=== PATIENT | female | born 1960 | race Caucasian/White ===

== ENCOUNTER → 2017-02-23 | Day surgery (SDC) | payer OTHER ==
[~2017-02-23] VITALS: Ht 165.1 cm; Wt 122.5 kg
[~2017-02-23] MED LIST: ACET-2605 PO; ACET325T51 PO; ASPI325T32 PO; ATOR20TA65 PO; CARV25TA2 PO; GLIP2.5T2 PO; Ketamine 10 mg/mL 20 mL Inj ONE; LISI-567 PO; Lactated Ringer's 1,000 ML IV ONE; Lactated Ringer's 1,000 ML IV SCH; METF500T4 PO; MetoCLOpramide 5 mg/mL 2 mL Inj IVPUSH PRN; NITR0.4T38 SL; Ondansetron 2 mg/mL 2 mL Inj IVPUSH PRN; Propofol 10,000 mCg/mL 20 mL Inj ONE; TRAM50TA2 PO; fentaNYL-PF 50 mCg/mL 2 mL Inj ONE
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
[2017-02-23 08:43] VITALS: BP 153/90; PULSE 73; RESP 16; O2SAT 95
[2017-02-23 10:04] VITALS: BP 129/86; PULSE 79; RESP 14; O2SAT 95
[2017-02-23 10:24] VITALS: BP 121/90; PULSE 77; RESP 14; O2SAT 98
--- NOTE | 2017-02-23 14:28 | ENDO ---
[address] [address] ENDOSCOPY PROCEDURE PATIENT: LOGAN KHOURY : 1960 MR#: [id number] ADMIT: 02/23/2017 JOB ID: [id number] DATE: 02/23/2017 PRIMARY PROVIDER: Pavel Caban M.D. PROCEDURES: 1. Esophagogastroduodenoscopy with biopsies. 2. Colonoscopy with biopsies and hot snare polypectomies and cold snare polypectomy. INDICATIONS: A 56-year-old female with a history of GERD, gastric bypass NSAID use and a positive FIT test. EQUIPMENT: GIF Q 180 and a PCF H 180 AL. SEDATION: Monitored anesthesia as provided by Dr. Jose Alejandro Be. COMPLICATIONS: None identified. BOWEL PREPARATION: Fair, adequate examination. PROCEDURE IN DETAIL: After the risks and benefits were explained, written and verbal informed consent was obtained. The patient was brought into the endoscopy suite and placed into the left lateral decubitus position. Sedation was achieved using the above-stated medications with the addition of oxygen via nasal cannula. The scope was introduced into the mouth through the bite block, and advanced into the gastric pouch. We were able to advance down into the duodenum (see below). The scope was removed from the stomach after decompression. The patient tolerated the procedure well. The patient was then turned around. A digital rectal examination accomplished. Moderate internal hemorrhoids noted. The scope was introduced into the rectum and advanced under direct visualization to the cecum as identified by oblique views of the appendiceal orifice. The scope was slowly withdrawn to carefully examine the mucosa for any defects or lesions. Multiple direct views were made through the dentate line. The colon was decompressed. The scope removed from the patient who tolerated the procedure well. FINDINGS: 1. Esophagus: No pathology appreciated in the esophagus. The GE junction was at about 44 cm from the incisors. 2. Stomach: The patient had a small gastric pouch. Mild gastropathy was appreciated. Random biopsy was taken for exclusion of Helicobacter. 3. Anastomosis: This was very abnormal. The surgically created anastomosis itself looked fine and was widely patent. However, there was obvious disruption of the suture line and we could access the small bowel by two separate openings. The second clearly additionally allowed us access into what should of been the excluded stomach. We were able to pass down into the antrum quite readily and viewed the pylorus which appeared morphologically normal. Through the anastomosis itself, specifically at the efferent limb, was highly ulcerated and mildly stenotic. Biopsy was taken from the inflamed appearing small bowel mucosa. We did not advance through the efferent stenosis into the efferent limb proper. 4. Duodenum: The proximal aspect of the duodenal bulb appeared completely normal. 5. Colon: Challenging navigation, redundant bowel, diverticulosis in the left colon. Soft protuberant ileocecal valve possibly representing an underlying adenoma. There was definite pillowing of the valve. I took a biopsy to exclude any superficial adenomatous features. Otherwise, I did not appreciate any cecal pathology. There was a small transverse colon polyp that was removed with cold snare. In the sigmoid around 30 cm from the anal verge was an exaggerated fold that initially appeared to be somewhat polypoid in nature but did not appear classic for an adenoma. Based on its appearance, I elected to take a biopsy of this area rather than remove with a large hot snare. A few centimeters downstream was a large pedunculated trilobed polyp that appeared classic for, at the very least, adenoma. This was successfully removed with the hot snare. In the rectum, there were some hyperplastic appearing polyps. One of these was removed with hot snare. During all of our hot snares, the magnet was applied to the AICD. ENDOSCOPIC DIAGNOSES: 1. 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 2. Disrupted gastric suture line. 3. Colon polyps. 4. Irregular sigmoid fold. 5. Diverticulosis. 6. Hemorrhoids. RECOMMENDATIONS: 1. Await histopathology. 2. The patient would be encouraged to stop nonsteroidal anti-inflammatory medications. 3. If Helicobacter is found, it will need to be eradicated with standard triple therapy. 4. I recommend re-evaluation with a bariatric surgeon. 5. If the sigmoid biopsy does not return with any adenomatous features, then I would recommend a repeat colonoscopy in three years. If there are adenomatous features on the sigmoid biopsy, then an early repeat examination for formal hot snare polypectomy would be necessary.
--- NOTE | 2017-02-24 07:30 | PCM.ANEP1 ---
Post Anesthesia PACU Phase 1 Assessment Anesthetic Administered: MAC Level of Alertness: Awake, talking HERRERA's with Equal Strength: Yes Pain: No Nausea or Vomiting: No CV Function & Hydration Stable: Yes Airway Device: none Lungs: Clear to Auscultation, Normal Air Movement Dermatome Level: Full Sensation PACU Phase 2 Assessment Complications: No Follow up Care: No Patient Instructions Provided: N/A Jose Alejandro Be MD Feb 24, 2017 07:30
--- NOTE | 2017-02-25 15:13 | PATH ---
SURGICAL PATHOLOGY Attending Physician:Saad Martinez CASE STATUS: Signed Out PATIENT NAME: LOGAN KHOURY PID: [id number] : 1960 DATE COLLECTED:02/23/2017 19:43 SPECIMEN: 1: Colon, Biopsy 2: Gastric, Biopsy 3: Colon, Biopsy 4: Colon, Polyp 5: Colon, Polyp 6: Colon, Polyp 7: Rectum, Biopsy CLINICAL HISTORY: 1). ANASTOMOSIS BIOPSY 2). GASTRIC BIOPSY - RULE OUT H PYLORI 3). ILEOCECAL VALVE BIOPSY 4). TRANSVERSE POLYP 5). POLYP AT 30 CM SIGMOID BIOPSY 6). SIGMOID LARGE POLYP X 1 7). RECTAL POLYP FINAL DIAGNOSIS: 1. Anastomosis Biopsy: - Enteric mucosa with architectural and reactive changes consistent with anastomosis site. - No evidence of dysplasia and malignancy. 2. Gastric Biopsy, Rule Out H. Pylori: - Gastric body-type mucosa with mild edema of lamina propria and extravasated red blood cells consistent with reactive changes. - Negative for Helicobacter pylori microorganisms. - Negative for intestinal metaplasia. - Negative for dysplasia and malignancy. 3. Ileocecal Valve, Biopsy: - Colonic mucosa with mild crypt architectural distortion (crypt branching), increased lamina propria plasma cells and scattered eosinophils. See comment. - No evidence of active inflammation. - Negative for dysplasia and malignancy. - Additional deeper levels examined. 4. Transverse Polyp, Biopsy: - Colonic mucosa with mild crypt architectural distortion (crypt branching), with fibrosis of lamina propria and reactive changes. See comment. - Negative for dysplasia and malignancy. - Additional deeper levels examined. 5. Polyp at 30 cm, Sigmoid Biopsy: - Hyperplastic polyp. 6. Sigmoid, Large Polyp x1, Biopsy: - Tubulovillous adenoma. - No evidence of high-grade dysplasia or malignancy. 7. Rectal Polyp, Biopsy: - Hyperplastic polyp with prolapse features. - Additional deeper levels examined. COMMENT: Part 3 and 4) Designated as ileocecal valve and transverse colon polyp respectively: The differential diagnosis in both parts include, healing injury, infection, medication related mucosal injury and inflammatory bowel disease. Multiple deeper levels were examined. Clinical and endoscopic correlation is recommended. As part of routine quality control tech section of the case were also reviewed by Dr. Liang who agrees with the interpretation. ICD10: D12.6 GROSS DESCRIPTION: The specimen is received in seven formalin filled containers labeled with the patient's name. 1). The specimen is labeled "anastomosis" and consists of a 0.2 x 0.2 x 0.2 CM portion of tissue which is entirely submitted in cassette 1A. 2). The specimen is labeled "gastric" and consists of 2 tiny portions of tissue which aggregate to 0.1 x 0.1 x 0.1 CM. The specimen is entirely submitted in cassette 2A. 3). The specimen is labeled " ICV " and consists of a 0.1 x 0.1 x 0.1 CM portion of tissue which is entirely submitted in cassette 3A. 4). The specimen is labeled "transverse polyp" and consists of a 0.1 x 0.1 x 0.1 CM portion of tissue which is entirely submitted in cassette 4A. 5). The specimen is labeled "polyp at 30 CM" and consists of a 0.2 x 0.2 x 0.2 CM portion of tissue which is entirely submitted in cassette 5A. 6). The specimen is labeled "sigmoid large polyp" and consists of a 0.7 x 0.7 x 0.6 CM portion of tissue. The specimen is trisected and entirely submitted in cassette 6A. 7). The specimen is labeled "rectal polyp" and consists of a 0.3 x 0.3 x 0.3 CM portion of tissue which is entirely submitted in cassette 7A. 02/23/2017DC ICD-9 CODES: CPT CODES: 1: 53004 2: 93823 3: 32642 4: 46393 5: 55092 6: 35255 7: 87873 Electronically Signed Out Zachery Lawson MD [facility] Pathology [facility], [place] [address] Technical component performed at [facility], [address] [place] [address] Ave[address], [place], [address]
== END | disposition home or self-care (01) ==
LOC: END 00:12
PROVIDERS: ATTEND Internal Medicine Gastroenterology
DX: R19.5 Other fecal abnormalities (principal); D12.5 Benign neoplasm of sigmoid colon; K57.30 Diverticulosis of large intestine without perforation or abscess without bleeding; K63.5 Polyp of colon; K62.1 Rectal polyp; K64.8 Other hemorrhoids; K63.89 Other specified diseases of intestine; K21.9 Gastro-esophageal reflux disease without esophagitis; E11.9 Type 2 diabetes mellitus without complications; D64.9 Anemia, unspecified; Z98.84 Bariatric surgery status; Z79.84 Long term (current) use of oral hypoglycemic drugs; Z79.82 Long term (current) use of aspirin
CPT/HCPCS: 43239; 45385; J2250; J2704; J3010; J7120